=== PATIENT | female | born 1995 | race Caucasian/White ===

== ENCOUNTER 2017-02-10 21:49 | Emergency (ER) | payer OTHER ==
--- NOTE | 2017-02-10 22:23 | CPEKG ---
Heart Rate: 79 RR Interval: 759 P-R Interval: 136 QRSD Interval: 76 QT Interval: 412 QTC Interval: 473 P [place]: 57 QRS [place]: 72 T Wave [place]: 48 EKG Severity - NORMAL ECG - EKG Impression: SINUS RHYTHM Electronically Signed By: Alfie Min 10-Feb-2017 22:46:26
--- NOTE | 2017-02-10 22:28 | EDPHY ---
H & P Stated Complaint: ANXIETH AND COCANE USE, L ARM PAIN HPI/ROS: HPI CHIEF COMPLAINT: Shortness of breath, anxiety, left arm tingling after doing cocaine, no chest pain HISTORY OF PRESENT ILLNESS: Patient very pleasant 21-year-old female no significant medical history or surgical history does not take any daily medications, she presents emergency room after doing a line of cocaine approximately 45 minutes ago. Few minutes after doing his line of cocaine she felt very anxious, shortness of breath, had tingling specifically in her left arm. No chest pain no headache. No focal weakness. She became very anxious thought she was having a heart attack came to the emergency room. Upon arrival here she missed anxiety. Slight hyperventilation. Complaining of hand tingling in her left arm. No chest pain no shortness of breath at this time. No trouble breathing. She does tell me that she does cocaine frequently never had this experience with it. Past Medical History: No medical history Past Surgical History: No surgical history Social History: Admits to doing cocaine frequently, denies other illicit drugs or tobacco no alcohol this evening Family History: Noncontributory ROS REVIEW OF SYSTEMS: A comprehensive 10 point review of systems is otherwise negative aside from elements mentioned in the history of present illness. Exam Constitutional appears anxious,triage nursing summary reviewed, vital signs reviewed, awake/alert. Eyes normal conjunctivae and sclera, EOMI, PERRLA. HENT normal inspection, atraumatic, moist mucus membranes, no epistaxis, neck supple/ no meningismus, no raccoon eyes. Respiratory clear to auscultation bilaterally, normal breath sounds, no respiratory distress, no wheezing. Cardiovascular rate normal, regular rhythm, no murmur, no edema, distal pulses normal. Gastrointestinal soft, non-tender, no rebound, no guarding, normal bowel sounds, no distension, no pulsatile mass. Genitourinary no CVA tenderness. Musculoskeletal no midline vertebral tenderness, full range of motion, no calf swelling, no tenderness of extremities, no meningismus, good pulses, neurovascularly intact. Skin pink, warm, & dry, no rash, skin atraumatic. Neurologic unremarkable neurological exam no focal weakness, good stick welder strength bilaterally, sensation intact, good distal pulses the left arm. Does complain of left arm tingling. awake, alert and oriented x 3, AAOx3, moves all 4 extremities equally, motor intact, sensory intact, CN II-XII intact, normal cerebellar, normal vision, normal speech. Psychiatric normal mood/affect. Heme/Lymph/Immune no lymphadenopathy. Differential Diagnosis: Includes but is not limited to in a particular order, cocaine toxicity, doubt cardiac arrhythmia, acute anxiety, panic attack, doubt pneumothorax Medical Decision Making: Plan for this patient 1 mg p. o. Ativan as she is refusing IV, p.o. challenge. Hydrate orally. Check EKG. Re-evaluate Re-evaluation: EKG interpretation by me on record in [facility] system. Impression time of EKG 2220, sinus rhythm rate of 79, no acute ischemic changes no signs of cardiac arrhythmia, no signs of prolonged intervals, no ischemic changes on EKG. Unremarkable EKG. 2311: Patient ambulated well to the bathroom without difficulty. Again re- examination of this patient she appears well nontoxic. No acute distress. Good air movement. Vital signs are stable. Had acute anxiety, panic attack, shortness of breath left arm tingling after doing cocaine. No evidence of pneumothorax on chest x-ray. EKG nonischemic. Normal ongoing pain anywhere. Tingling has resolved. Shortness of breath resolved. Anxiety well under control. will allow her to go home however strict return precautions given she understands return emergency room if she has any further worsening symptoms questions or concerns. ED x-ray chest one view: negative for acute cardiopulmonary disease. Specifically no pneumothorax. No subcutaneous air, no free air. Normal cardiac silhouette. No pneumomediastinum. Image interpreted myself. Source: Patient - Personal History LMP (Females 10-55): 22-28 Days Ago Current Tetanus/Diphtheria Vaccine: Yes Current Tetanus Diphtheria and Acellular Pertussis (TDAP): Yes - Medical/Surgical History Hx Asthma: No Hx Chronic Respiratory Disease: No Hx Diabetes: No Hx Cardiac Disease: No Hx Renal Disease: No Hx Cirrhosis: No Hx Alcoholism: No Hx HIV/AIDS: No Hx Splenectomy or Spleen Trauma: No Other PMH: ANXIETH, OCD - Social History Smoking Status: Current some day smoker Constitutional: Initial Vital Signs Temperature (C) 36.4 C 02/10/17 21:55 Heart Rate 105 H 02/10/17 21:55 Respiratory Rate 20 02/10/17 21:55 Blood Pressure 139/86 H 02/10/17 21:55 O2 Sat (%) 99 02/10/17 21:55 O2 Delivery Mode Room Air Allergies/Adverse Reactions: No Known Allergies Allergy (Unverified 02/10/17 21:57) Home Medications: Medication Instructions Recorded Lexapro 02/08/16 Ortho-Novum 02/08/16 Medical Decision Making - Data Points Medications Given: Discontinued Medications Lorazepam (Ativan) 1 mg PO ONCE ONE Stop: 02/10/17 22:35 Last Admin: 02/10/17 22:40 Dose: 1 mg Departure - Departure Disposition: Home, Routine, Self-Care Clinical Impression: Acute anxiety, Cocaine abuse Condition: Good Instructions: Cocaine Abuse (ED), Anxiety (ED) Additional Instructions: 1. I recommend staying well hydrated drink lots of fluids. 2. refrain from doing cocaine. 3. return emergency room if you have worsening symptoms questions or concerns. Referrals: NONE *PRIMARY CARE P,. [Primary Care Provider] - As per Instructions
[2017-02-10] MEDS ORDERED: LORazepam 1 MG TAB PO ONE ×2 (22:34→23:18)
[2017-02-10 23:32] VITALS: BP 126/75; PULSE 88; RESP 16; TEMP 97.7; O2SAT 97
== END 2017-02-10 23:32 | disposition home or self-care (01) ==
DX: F41.9 Anxiety disorder, unspecified (principal); F14.10 Cocaine abuse, uncomplicated; F17.200 Nicotine dependence, unspecified, uncomplicated

== ENCOUNTER 2019-02-03 16:15 | Emergency (ER) | payer OTHER ==
[2019-02-03] MEDS ORDERED: NS 1,000 ML IV ONE (17:51)
--- NOTE | 2019-02-03 17:51 | EDPHY ---
H & P Stated Complaint: CP/SOB/dizziness Time Seen by Provider: 02/03/19 17:47 HPI/ROS: CHIEF COMPLAINT: He shortness of breath, lightheaded HISTORY OF PRESENT ILLNESS: The patient is a 23-year-old female history of anxiety who comes to the emergency department complaining of the shortness of breath, tachycardia and feeling lightheaded. She presented with the same symptoms yesterday at [facility]. She had a normal blood gas done and normal D-dimer, normal chemistries and normal urinalysis the and normal chest x- ray. She was the discharge states that she does not feel any better. She states that she also is having some blood in her urine today and is worried that maybe she has a kidney stone or urinary infection. She denies back pain, flank pain or dysuria. She denies risk of . She denies vaginal bleeding or discharge. Severity: Moderate Modifying factors: None REVIEW OF SYSTEMS: Constitutional: denies: chills, fever, recent illness, recent injury EENTM: denies: blurred vision, double vision, nose congestion Respiratory: denies: cough, shortness of breath Cardiac: denies: chest pain, irregular heart rate, lightheadedness, palpitations Gastrointestinal/Abdominal: denies: abdominal pain, diarrhea, nausea, vomiting, blood streaked stools Genitourinary: denies: dysuria, frequency, hematuria, pain Musculoskeletal: denies: joint pain, muscle pain Skin: denies: lesions, rash, jaundice, bruising Neurological: denies: headache, numbness, paresthesia, tingling, dizziness, weakness Hematologic/Lymphatic: denies: blood clots, easy bleeding, easy bruising Immunologic/allergic: denies: HIV/AIDS, transplant 10 systems reviewed and negative except as noted EXAM: GENERAL: Well-appearing, well-nourished and in no acute distress. Laughing, saturating 96% on room air and respiratory rate of 16 however she is tachycardic around 120. HEAD: Atraumatic, normocephalic. EYES: Pupils equal round and reactive to light, extraocular movements intact, sclera anicteric, conjunctiva are normal. ENT: TMs normal, nares patent, oropharynx clear without exudates. Moist mucous membranes. NECK: Normal range of motion, supple without lymphadenopathy or JVD. LUNGS: Breath sounds clear to auscultation bilaterally and equal. No wheezes rales or rhonchi. HEART: Tachycardic without murmurs, rubs or gallops. ABDOMEN: Soft, nontender, normoactive bowel sounds. No guarding, no rebound. No masses appreciated. BACK: No CVA tenderness, no spinal tenderness, step-offs or deformities EXTREMITIES: Normal range of motion, no pitting or edema. No clubbing or cyanosis. NEUROLOGICAL: Cranial nerves II through XII grossly intact. Normal speech, normal gait. 5/5 strength, normal movement in all extremities, normal sensation , normal reflexes PSYCH: Normal mood, normal affect. SKIN: Warm, dry, normal turgor, no visible rashes or lesions. Source: Patient Exam Limitations: No limitations - Personal History LMP (Females 10-55): 8-14 Days Ago Current Tetanus/Diphtheria Vaccine: Yes - Medical/Surgical History Hx Asthma: No Hx Chronic Respiratory Disease: No Hx Diabetes: No Hx Cardiac Disease: No Hx Renal Disease: No Hx Cirrhosis: No Hx Alcoholism: No Hx HIV/AIDS: No Hx Splenectomy or Spleen Trauma: No Other PMH: ANXIETH, OCD - Family History Significant Family History: No pertinent family hx - Social History Smoking Status: Former smoker Alcohol Use: None Constitutional: Initial Vital Signs Temperature (C) 37.2 C 02/03/19 16:18 Heart Rate 136 H 02/03/19 16:18 Respiratory Rate 18 02/03/19 16:18 Blood Pressure 132/84 H 02/03/19 16:18 O2 Sat (%) 97 02/03/19 16:18 O2 Delivery Mode Room Air Allergies/Adverse Reactions: No Known Allergies Allergy (Unverified 02/03/19 16:21) Home Medications: Medication Instructions Recorded Lexapro 02/08/16 Ortho-Novum 02/08/16 Cephalexin [Keflex] 500 mg PO TID #21 cap 02/03/19 Klonopin 02/03/19 LORazepam [Ativan 1 mg (RX)] 1 mg PO Q6-8PRN PRN #10 tab 02/03/19 Latuda 02/03/19 Medical Decision Making - Diagnostics EKG Interpretation: An EKG obtained and was read and documented in trace view. Please see trace view for full reading and report. Sinus tachycardia 113, no acute ischemic changes Imaging: Discussed imaging studies w/ call center agent Radiologist ED Course/Re-evaluation: The patient does appear to have a mild urinary tract infection. I have started the Rocephin. She repeatedly asks me why she was wheezing earlier today. I reviewed with her her respiratory rate, oxygenation status, x-ray, EKG and lab work thus far. Also her lung exam is clear. I do not have an explanation for wheezing earlier but I suggested maybe is from anxiety. She does not believe this. She continued to ask me why we are not doing anything to evaluate her wheezing and I again reviewed the multiple things that we are doing to evaluate her wheezing. Her D-dimer was rejected initially but was negative yesterday. Will recheck. 8:20 p.m. the patient apologize to me and I apologized to her. She felt offended earlier when I asked her if she had been using drugs recently. She told me I can test her urine if I wanted. I told her I did not need to that I trusted her. She does have urinary tract infection. Will treat her for this. She again asked about the wheezing. I offered to give her anxiolytics to take p.r.n. If she would like. She states she would like this. Discussed indications for returning to the ER. Differential Diagnosis: Partial list of the Differential diagnosis considered include but were not limited to; anxiety, urinary tract infection, asthma and although unlikely based on the history and physical exam, I also considered pneumonia, PE, acute coronary disease, kidney stone, . I discussed these differential diagnoses and the plan with the patient as well as the usual and expected course. The patient understands that the diagnosis is provisional and that in medicine we are not always correct and that further workup is often warranted. Usual and customary warnings were given. All of the patient's questions were answered. The patient was instructed to return to the emergency department should the symptoms at all worsen or return, otherwise to followup with the physician as we discussed. - Data Points Laboratory Results: Laboratory Results 02/03/19 18:11 02/03/19 18:11 Medications Given: Discontinued Medications Sodium Chloride (Ns) 1,000 mls @ 0 mls/hr IV EDNOW ONE; Wide Open PRN Reason: Protocol Stop: 02/03/19 17:52 Last Admin: 02/03/19 18:13 Dose: 1,000 mls Ceftriaxone Sodium/Dextrose (Rocephin 1 Gm (Premix)) 50 mls @ 100 mls/hr IV EDNOW ONE PRN Reason: Protocol Stop: 02/03/19 19:14 Last Admin: 02/03/19 19:09 Dose: 50 mls Lorazepam (Ativan Injection) 1 mg IVP EDNOW ONE Stop: 02/03/19 17:53 Last Admin: 02/03/19 18:13 Dose: 1 mg Lorazepam (Ativan Injection) 1 mg IVP EDNOW ONE Stop: 02/03/19 19:55 Last Admin: 02/03/19 19:57 Dose: 1 mg Departure - Departure Disposition: Home, Routine, Self-Care Clinical Impression: Anxiety about health Urinary tract infection Qualifiers: Urinary tract infection type: acute cystitis Hematuria presence: with hematuria Qualified Code(s): N30.01 - Acute cystitis with hematuria Condition: Fair Instructions: Urinary Tract Infection in Women (ED), Anxiety (ED) Referrals: NONE *PRIMARY CARE P,. [Primary Care Provider] - As per Instructions [facility] [Clinic] - 2-3 days, if not improved Prescriptions: Cephalexin [Keflex] 500 mg PO TID #21 cap LORazepam [Ativan 1 mg (RX)] 1 mg PO Q6-8PRN PRN #10 tab PRN Reason: *Anxiety/Agitation/Insomnia
[2019-02-03] MEDS ORDERED: LORazepam 2 MG/ML INJ IVP ONE ×2 (17:52→19:54)
[2019-02-03 18:23] LABS: PLATELET COUNT 280 10^3/uL (150-400)
--- NOTE | 2019-02-03 18:44 | CPEKG ---
Test Reason : OPEN Blood Pressure : / mmHG Vent. Rate : 113 BPM Atrial Rate : 114 BPM P-R Int : 112 ms QRS Dur : 074 ms QT Int : 348 ms P-R-T Axes : 053 076 046 degrees QTc Int : 478 ms Sinus tachycardia Borderline prolonged QT interval Confirmed by Seb Henry ([id number]) on 02/03/2019 6:43:58 PM Referred By: SEB HENRY Confirmed By:Seb Henry
[2019-02-03 20:28] VITALS: BP 118/85
== END 2019-02-03 20:38 | disposition home or self-care (01) ==
DX: N30.01 Acute cystitis with hematuria (principal); F41.9 Anxiety disorder, unspecified; E86.9 Volume depletion, unspecified; Z87.891 Personal history of nicotine dependence
CPT/HCPCS: 96365; J0696; J2060